=== PATIENT | male | born 1960 | race Caucasian/White ===

== ENCOUNTER → 2018-06-11 09:03 | Outpatient (CLI) | payer OTHER, SELFPAY ==
[2018-06-11 10:01] LABS: Erythrocyte Sedimentation Rate 17 MM/HR (0-15)
[2018-06-11 10:07] LABS: Blood Urea Nitrogen 15 mg/dL (9-20); C-Reactive Protein Quant 0.9 mg/dL (<1.0); Calcium 9.5 mg/dL (8.4-10.2); Carbon Dioxide 27 mmol/L (22-32); Chloride 102 mmol/L (98-107); Estimated Glomerular Filt Rate > 60.0 mL/min (>60); Glucose 121 mg/dL (70-100); HEMOLYSIS < 15 (0-50); Potassium 4.8 mmol/L (3.4-5.1); Sodium 140 mmol/L (137-145); Uric Acid 6.9 mg/dL (3.5-8.5)
== END ==
PROVIDERS: Visit Provider Registered Nurse
DX: M10.9 Gout, unspecified (principal)
CPT/HCPCS: 36415; 80048; 84550; 85651; 86140

== ENCOUNTER → 2018-07-04 08:32 | Outpatient (CLI) | payer OTHER, SELFPAY ==
[2018-07-04 09:29] LABS: Add Manual Diff / Slide Review NO; Basophils Absolute Auto 0 /uL (0-100); Basophils Percent Auto 0.8 % (0-2); Eosinophils Absolute Auto 200 /uL (0-450); Eosinophils Percent Auto 5.3 % (2-4); Hematocrit 43.8 % (41-53); Hemoglobin 14.8 g/dL (13.5-17.5); Lymphocytes Absolute Auto 1400 /uL (1100-4500); Lymphocytes Percent Auto 31.6 % (25-40); Mean Corpuscular HGB Conc 33.8 % (30-36); Mean Corpuscular Hemoglobin 32.1 PG (26-34); Mean Corpuscular Volume 95.1 fL (80-100); Monocytes Absolute Auto 600 /uL (0-900); Monocytes Percent Auto 13.6 % (3-14); Neutrophils Absolute Auto 2100 /uL (1500-7000); Neutrophils Percent Auto 48.7 % (50-75); Platelet Count 227 X10^3/uL (150-400); Red Cell Distribution Width 13.5 % (11.6-14.8); White Blood Cell Count 4.4 X10^3/uL (4.5-11.0)
[2018-07-04 10:10] LABS: Hemoglobin A1C% w Est Avg Glu 5.8 % (4.0-6.0)
[2018-07-04 10:11] LABS: Alanine Aminotransferase 65 IU/L (21-72); Albumin 4.6 g/dL (3.5-5.0); Albumin Globulin Ratio 1.5 (1.0-2.8); Alkaline Phosphatase 56 U/L (38-126); Aspartate Aminotransferase 41 IU/L (17-59); BUN Creatinine Ratio 17.3 (6-22); Bilirubin Total 0.4 mg/dL (0.2-1.3); Blood Urea Nitrogen 19 mg/dL (9-20); Calcium 9.6 mg/dL (8.4-10.2); Carbon Dioxide 27 mmol/L (22-32); Chloride 101 mmol/L (98-107); Cholesterol 190 mg/dL (140-199); Estimated Glomerular Filt Rate > 60.0 mL/min (>60); Globulin 3.1 g/dL (1.7-4.1); Glucose 99 mg/dL (70-100); HDL Cholesterol 32 mg/dL (40-60); HEMOLYSIS < 15 (0-50); LDL Cholesterol Calculated 136 mg/dL (<100); Potassium 4.4 mmol/L (3.4-5.1); Sodium 140 mmol/L (137-145); Total Protein 7.7 g/dL (6.3-8.2); Triglycerides 110 mg/dL (35-150)
[2018-07-04 10:38] LABS: TSH w/ Reflex to FT4 5.16 uIU/mL (0.47-4.68)
[2018-07-04 11:25] LABS: Free T4, Direct Thyroxine 1.02 ng/dL (0.78-2.19)
== END ==
PROVIDERS: Visit Provider Family Medicine
DX: N52.9 Male erectile dysfunction, unspecified (principal); Z13.220 Encounter for screening for lipoid disorders
CPT/HCPCS: 36415; 80053; 80061; 83036; 84403; 84439; 84443; 85025

== ENCOUNTER → 2018-08-29 10:58 | Outpatient (CLI) | payer OTHER, SELFPAY ==
--- NOTE | 2018-08-29 13:52 | DIET.PN ---
Met with pt and for initial consultation. Pt wants to lose wt. 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 has fibromyalgia, so he's wanting to prepare foods appropriate for her as well. Gained a lot of wt in last year r/t decrease in physical activity. Dx: Obesity Ht: 72 Wt: 265# BMI: 35 Usual Diet: 3 meals daily; tries to avoid snacks as they are usually poor choices. Diet includes lean meats - lot of poultry, some pork, some seafood w/beef only twice/year. Diet includes a lot of vegetables; has been trying to cut down on breads and beer. Likes craft beer - brown or scotch brittani. Exercise: Used to swim and walk daily. Had to stop r/t a neck issue. Has only recently started some walking. Assessment: Pt and appear to eat a fairly clean diet w/many whole foods; home prepared meals. Biggest obstacle to wt control appears to be lack of exercise, which he is working on once again. Intervention: Provided ed on anti-inflammatory diet, which will be good for both pt and his . Provided ed on healthy plate model for portion control/well balanced diet. Plan: Pt w/c for f/u when has schedule in order.
== END ==
PROVIDERS: Visit Provider Family Medicine
DX: E66.9 Obesity, unspecified (principal)
CPT/HCPCS: 97802

== ENCOUNTER 2018-09-03 20:44 | Emergency (ER) | payer OTHER, SELFPAY ==
[2018-09-03 20:48] VITALS: BP 181/116; PULSE 70; RESP 20; TEMP 37; O2SAT 96; BMI 35.9
[2018-09-03 21:20] LABS: Bacteria Urine None Seen; WBC Urine None Seen (0-5/HPF)
[2018-09-03 21:37] LABS: Appearance Urine UA OTHER; Color Urine UA BLOODY RED; pH Urine UA 6.5 (4.5-8.0)
[2018-09-03 21:38] LABS: Glucose Urine UA NEGATIVE (Negative); Protein Urine UA 3+ (Negative); Specific Gravity Urine UA 1.015 (1.000-1.035)
[2018-09-03 21:39] LABS: Leukocyte Esterase Urine UA NEGATIVE (NEGATIVE); Occult Blood Urine UA 4+ (Negative); RBC Urine >100/HPF (0-5/HPF)
[2018-09-03 21:40] LABS: Culture Indicated Urine Cult Not Indicated
[2018-09-03 22:09] VITALS: BP 142/94; PULSE 62; RESP 18; O2SAT 95
[2018-09-03 22:42] LABS: Bilirubin Urine UA Negative (NEGATIVE)
[2018-09-03 23:56] VITALS: BP 140/71; PULSE 64; O2SAT 95
--- NOTE | 2018-09-03 23:57 | ED_ITS ---
HPI - Male Genitourinary General Chief complaint: Urogenital-Male Stated complaint: BLOOD IN URINE Time Seen by Provider: 09/03/18 23:57 Source: patient Mode of arrival: ambulatory Limitations: no limitations History of Present Illness HPI Narrative: While at rest this evening the patient developed hematuria. He developed intense pain in the right lower quadrant of his abdomen radiating to the right side of his scrotum. He has no associated back pain. He has no abdominal pain. He has had no fever or chills. He denies dysuria. He has no history of kidney stones. Related Data Home Medications Medication Instructions Recorded Confirmed Resmed Airsense 10 Auto CPAP #1 ea 05/07/18 08/18/18 Previous Rx's Medication Instructions Recorded albuterol sulfate [Proventil HFA] 2 puff INH Q2H #8.5 gm 04/28/12 bupropion HCl 300 mg PO QDAY #90 tab 12/21/16 sildenafil 100 mg tablet 100 mg PO ONCE #20 tab 06/06/18 Allergies Allergy/AdvReac Type Severity Reaction Status Date / Time No Known Drug Allergies Allergy Verified 08/18/18 15:52 Review of Systems Review of Systems ROS Unobtainable: All systems reviewed & are unremarkable except as noted in HPI and below Constitutional Denies chills, Denies fever(s), Denies lethargy and Denies weakness Cardiovascular Denies chest pain, Denies irregular heart rhythm, Denies lightheadedness, Denies palpitations, Denies dyspnea, Denies dyspnea on exertion and Denies orthopnea Respiratory Denies cough, Denies dyspnea, Denies dyspnea on exertion and Denies wheezing Gastrointestinal Gastrointestinal: Reports abdominal pain, Denies change in bowel habits, Denies diarrhea, Denies nausea and Denies vomiting Genitourinary Reports hematuria, Denies flank pain, Denies urinary incontinence and Denies urinary urgency Musculoskeletal Denies back pain Neurologic Denies weakness Endocrine Denies palpitations Allergic/Immunologic Denies wheezing [facility] Medical History Chronic neck pain (Chronic) Depression (Chronic) Obstructive sleep apnea of adult (Chronic) Family History Father Lung cancer Throat cancer Mother CAD (coronary artery disease) CVA (cerebral vascular accident) Hypertension Social History (Updated 05/09/18 @ 11:40 by ANGELA Irizarry) marital status: details: ernie Suarez, lives in [place], works at the [employer] [address] household members: spouse lives independently: Yes caregiver/support person: No occupational status: employed Smoking Status: Never smoker second hand exposure: No alcohol intake: current substance use type: does not use Family History Father Lung cancer Throat cancer Mother CAD (coronary artery disease) CVA (cerebral vascular accident) Hypertension Social History marital status: details: ernie Suarez, lives in [place], works at the [employer] [address] household members: spouse lives independently: Yes caregiver/support person: No occupational status: employed Smoking Status: Never smoker second hand exposure: No alcohol intake: current substance use type: does not use Exam Initial Vital Signs Initial Vital Signs: Vital Signs Temperature 98.6 F 09/03/18 20:48 Pulse Rate 70 09/03/18 20:48 Respiratory Rate 20 09/03/18 20:48 Blood Pressure 181/116 H 09/03/18 20:48 Pulse Oximetry 96 09/03/18 20:48 Const General: cooperative and well developed Nutritional Appearance: well nourished Orientation: alert, awake and oriented x3 HENMT Head: normocephalic and atraumatic Ears: external ears normal and TM's normal bilaterally Nose: external nose normal Mouth: oral mucosae normal and moist mucous membranes Teeth and gingiva: dentition normal Throat: tonsils normal and uvula midline Chest Chest: normal inspection of the chest Resp Effort & Inspection: normal respiratory effort, able to speak in complete sentences, no respiratory distress and no use of accessory muscles Auscultation: clear to auscultation bilaterally, no rales, no rhonchi and no wheezes Cardio Rate: regular rate Rhythm: regular rhythm Heart Sounds: no click, no gallops, no murmurs and no rubs Pulses: normal peripheral pulses GI Inspection: non-distended Palpation: soft, no hepatosplenomegaly, No guarding, No pulsatile mass and No tender Auscultation: normal bowel sounds Penis: normal penis Meatus: meatus normal Scrotum: scrotum normal, not edematous and no masses Back/Spine/Pelvis Sacrum: no tenderness Skin General: no rashes or lesions noted and No petechiae Course Course Narrative: The patient is pain free prior to discharge. He presented with hematuria and RLQ tenderness. He is pain-free after IV fluids and Toradol. CT showed a punctate left renal stone, no other significant findings. Orders Ordered: ED Orders 09/03/18 20:50 Urinalysis and Microscopic Stat 09/04/18 00:11 CT abdomen pelvis wo con Stat 09/04/18 00:25 Basic Metabolic Panel Stat Complete Blood Count AUTO DIFF Stat Sodium Chloride (Normal Saline 0.9%) 1,000 mls @ 150 mls/hr IV CONT JOHN Discontinued Medications Ketorolac Tromethamine (Toradol) 30 mg IV NOW ONE Stop: 09/04/18 00:11 Last Admin: 09/04/18 00:27 Dose: 30 mg Vital Signs - 8 hr 09/03/18 20:48 09/03/18 22:09 09/03/18 23:56 Temperature 98.6 F Pulse Rate 70 62 64 Respiratory Rate 20 18 Blood Pressure 181/116 H Blood Pressure [Left Arm] 142/94 H 140/71 Pulse Oximetry 96 95 95 09/04/18 00:30 09/04/18 01:03 Temperature Pulse Rate 65 103 H Respiratory Rate 27 H Blood Pressure Blood Pressure [Left Arm] 142/92 H 111/66 Pulse Oximetry 93 100 MDM - Male Genitourinary Lab Data Result diagrams: 09/04/18 00:25 09/04/18 00:25 Lab Results 09/03/18 09/04/18 09/04/18 Range/Units 20:50 00:25 00:25 WBC 7.9 (4.5-11.0) X10^3/uL RBC 4.62 (4.5-5.9) X10^6/uL Hgb 14.9 (13.5-17.5) g/dL Hct 43.5 (41-53) % MCV 94.0 (80-100) fL MCH 32.3 (26-34) PG MCHC 34.3 (30-36) % RDW 13.6 (11.6-14.8) % Plt Count 216 (150-400) X10^3/uL Neut % (Auto) 58.4 (50-75) % Lymph % (Auto) 29.6 (25-40) % [place] % (Auto) 8.5 (3-14) % Eos % (Auto) 2.7 (2-4) % Baso % (Auto) 0.8 (0-2) % Neut # (Auto) 4600 (3306-0149) /uL Lymph # (Auto) 2300 (5499-6660) /uL [place] # (Auto) 700 (0-900) /uL Eos # (Auto) 200 (0-450) /uL Baso # (Auto) 100 (0-100) /uL Sodium 139 (137-145) mmol/L Potassium 4.0 (3.4-5.1) mmol/L Chloride 101 (98-107) mmol/L Carbon Dioxide 25 (22-32) mmol/L BUN 25 H (9-20) mg/dL Creatinine 1.20 (0.66-1.25) mg/dL Estimated GFR > 60.0 (>60) mL/min BUN/Creatinine Ratio 20.8 (6-22) Glucose 104 H (70-100) mg/dL Calcium 9.6 (8.4-10.2) mg/dL Urine Color Bloody red Urine Appearance Other Urine pH 6.5 (4.5-8.0) Ur Specific [place] 1.015 (1.000-1.035) Urine Protein 3+ H (Negative) Urine Glucose (UA) Negative (Negative) g/dL Urine Ketones Not Reportable Urine Occult Blood 4+ H (Negative) Urine Nitrate Not Reportable Urine Bilirubin Negative (NEGATIVE) Urine Urobilinogen Not Reportable Ur Leukocyte Esterase Negative (NEGATIVE) Urine RBC >100/hpf (0-5/HPF) Urine WBC None seen (0-5/HPF) Urine Bacteria None seen (None) Ur Culture Indicated? Cult not indicated Micro UA Comment * Imaging Data CT scan - abdomen: Radiologist's impression: Questionable punctate left intrarenal calculus, no hydronephrosis or obstructing calculus. No other significant findings. Discharge Plan Departure Patient Disposition: Home Clinical Impression: Hematuria Qualifiers: Hematuria type: gross Qualified Code(s): R31.0 - Gross hematuria Instructions: DI for Kidney Stones Activity Restrictions/Additional Instructions: Drink plenty of fluids, be sure you are staying well hydrated. Take Tylenol or Advil as needed for pain. Return here if you have recurrence of pain. Prescriptions: No Action albuterol sulfate [Proventil HFA] 90 MCG/PUFF HFA aerosol inhaler 2 puff INH Q2H Qty: 8.5 RF: 3 bupropion HCl 300 MG tablet extended release 24 hr 300 mg PO QDAY Qty: 90 RF: 3 sildenafil 100 mg tablet 100 mg PO ONCE Qty: 20 RF: 2 Resmed Airsense 10 Auto CPAP Qty: 1 RF: 0
--- NOTE | 2018-09-04 00:11 | DI.CT.S_ITS ---
PROCEDURE: CT ABDOMEN PELVIS WO CON INDICATIONS: RLQ pain. Hematuria. TECHNIQUE: Noncontrast 5 mm thick sections acquired from the diaphragms to the symphysis. 5 mm coronal and sagittal reformats were then performed. For radiation dose reduction, the following was used: automated exposure control, adjustment of mA and/or kV according to patient size. COMPARISON: [facility], , MRI L-SPINE W/WO CONTRAST, 04/06/2005, 8:13. FINDINGS: Image quality: Excellent. ABDOMEN: Lung bases: Lung bases are clear. Heart size is normal. Solid organs: Hepatic steatosis. Liver is normal in size. Gallbladder is normal. Pancreas is normal in contours. Spleen is normal in size. No adrenal nodules. Kidneys are normal in size, without hydronephrosis or nephrolithiasis. There is 5 cm simple-appearing cyst in the inferior pole of the left kidney. Small low density cortical nodule seen in the left kidney are also likely cysts. Possible tiny nonobstructive left renal calcification. Peritoneum and bowel: Appendix is not visualized. There is no inflammatory stranding in the right lower quadrant. Moderate amount of stool in colon. Unenhanced bowel loops demonstrate normal wall thickness and caliber. No free fluid or air. Nodes and vessels: No retroperitoneal or mesenteric adenopathy by size criteria. Aorta and inferior vena cava are normal in caliber. Miscellaneous: No ventral hernias. PELVIS: Genitourinary: Bladder wall thickness is normal. Miscellaneous: No inguinal hernias or adenopathy. Bones: No suspicious bony lesions. No vertebral body compression fractures. Mild degenerative changes in lumbar spine. IMPRESSION: 1. No CT findings to explain right lower quadrant abdominal pain. No right renal stone. Nonvisualization of appendix. No secondary signs to suggest acute appendicitis. 2. Hepatic steatosis. 3. Moderate amount of stool in colon. 4. Possible tiny nonobstructive left renal calcification and multiple left renal cysts. No significant discrepancy with the night shift supervisor radiology preliminary report. Dictated by: Lito Judd M.D. on 09/04/2018 at 8:17 Approved by: Lito Judd M.D. on 09/04/2018 at 8:23
[2018-09-04] MEDS: KETOROLAC 60 MG/2 ML VIAL 30 MG IV (00:27)
[2018-09-04 00:30] VITALS: BP 142/92; PULSE 65; O2SAT 93
[2018-09-04 00:32] LABS: Add Manual Diff / Slide Review NO; Basophils Absolute Auto 100 /uL (0-100); Basophils Percent Auto 0.8 % (0-2); Eosinophils Absolute Auto 200 /uL (0-450); Eosinophils Percent Auto 2.7 % (2-4); Hematocrit 43.5 % (41-53); Hemoglobin 14.9 g/dL (13.5-17.5); Lymphocytes Absolute Auto 2300 /uL (1100-4500); Lymphocytes Percent Auto 29.6 % (25-40); Mean Corpuscular HGB Conc 34.3 % (30-36); Mean Corpuscular Hemoglobin 32.3 PG (26-34); Monocytes Absolute Auto 700 /uL (0-900); Monocytes Percent Auto 8.5 % (3-14); Neutrophils Absolute Auto 4600 /uL (1500-7000); Neutrophils Percent Auto 58.4 % (50-75); Platelet Count 216 X10^3/uL (150-400); Red Blood Cell Count 4.62 X10^6/uL (4.5-5.9); Red Cell Distribution Width 13.6 % (11.6-14.8); White Blood Cell Count 7.9 X10^3/uL (4.5-11.0)
[2018-09-04 00:42] LABS: BUN Creatinine Ratio 20.8 (6-22); Blood Urea Nitrogen 25 mg/dL (9-20); Calcium 9.6 mg/dL (8.4-10.2); Carbon Dioxide 25 mmol/L (22-32); Chloride 101 mmol/L (98-107); Estimated Glomerular Filt Rate > 60.0 mL/min (>60); Glucose 104 mg/dL (70-100); HEMOLYSIS < 15 (0-50); Sodium 139 mmol/L (137-145)
[2018-09-04 01:03] VITALS: BP 111/66; PULSE 103; RESP 27; O2SAT 100
[2018-09-04 02:30] VITALS: BP 127/90; PULSE 99; RESP 20; O2SAT 100
[2018-09-04 03:06] VITALS: BP 131/86; PULSE 59; RESP 15; O2SAT 95
== END 2018-09-04 03:06 | disposition home or self-care (01) ==
PROVIDERS: Emergency Provider Emergency Medicine
DX: R31.0 Gross hematuria (principal); R10.31 Right lower quadrant pain
CPT/HCPCS: 36591; 74176; 80048; 81001; 85025; 96374; 99283; 99284; J1885

== ENCOUNTER → 2019-11-17 11:08 | Outpatient (CLI) | payer OTHER, SELFPAY ==
--- NOTE | 2019-11-17 11:17 | DI.RAD.S_ITS ---
PROCEDURE: XR KNEE RT 3V INDICATIONS: knee pain TECHNIQUE: 3 views of the knee were acquired. COMPARISON: [facility], , KNEE 3V RIGHT, 03/01/2009, 11:06. FINDINGS: Bones: No fractures or dislocations. No suspicious bony lesions. There is ACL repair. Mild to moderate degenerative joint disease. Soft tissues: Small joint effusion. No suspicious soft tissue calcifications. IMPRESSION: 1. No acute osseous abnormalities. 2. ACL repair. 3. Mild to moderate degenerative joint disease. 4. Small knee joint effusion. Dictated by: Lito Judd M.D. on 11/17/2019 at 15:51 Approved by: Lito Judd M.D. on 11/17/2019 at 15:52
== END ==
PROVIDERS: PCP Family Medicine; Referring Provider Family Medicine; Visit Provider Family Medicine
DX: M25.561 Pain in right knee (principal); M17.11 Unilateral primary osteoarthritis, right knee; M25.461 Effusion, right knee
CPT/HCPCS: 73562

== ENCOUNTER → 2019-12-05 13:48 | Outpatient (CLI) | payer OTHER, SELFPAY ==
[2019-12-06 20:46] LABS: COVID19 Sendout Not Detected (Not Detect)
== END ==
PROVIDERS: PCP Family Medicine; Visit Provider Physician Assistant
DX: Z11.59 Encounter for screening for other viral diseases (principal)
CPT/HCPCS: 87635

== ENCOUNTER 2019-12-08 11:55 | Day surgery (SDC) | payer OTHER, SELFPAY ==
--- NOTE | 2019-12-08 | PATH_ITS ---
[facility] Accession Number: [id number] . 01 Material submitted: . colon - SMALL FLAT POLYP AT 50CM . 01 Clinical history: . SDC . 02 Diagnosis: Colon, Small Flat Polyp at 50 cm, Biopsy: Colonic mucosa with no significant diagnostic abnormality. Please see comment. Negative for dysplasia and malignancy. MRV 12/11/2019 1345 Local . 02 Comment: Additional deeper levels were requested for examination; however, there is no remaining tissue in the block for further evaluation. Clinical correlation recommended. . 02 Electronically signed: . Zehra Mcnamara MD, Pathologist NPI- [id number] . 01 Gross description: . SMALL FLAT POLYP AT 50CM: Received in formalin is 1 fragment(s) of matos, soft tissue measuring 0.3 x 0.1 x 0.1 cm submitted entirely in 1 cassette(s) /QBJ 12/09/2019 0901 Local . 02 Pathologist provided ICD-10: K63.5 . 02 CPT . 749422 Performed at: 01 [facility] [address] [place] [address], [place], [place] [id number] MD Jeff Harper MD Phone: [phone] Performed at: 02 [facility] [address] [place], [place] [id number] MD Zehra Mcnamara MD Phone: [phone]
[2019-12-08 12:09] VITALS: BP 159/82; PULSE 63; RESP 18; TEMP 36.3; O2SAT 98; BMI 35.2
[2019-12-08] MEDS: SODIUM CHLORIDE 0.9% 1,000 ML 200 ML IV (12:45)
--- NOTE | 2019-12-08 12:50 | PM.HP.1 ---
History of Present Illness History of Present Illness Date Patient Seen: 12/08/19 Time Patient Seen: 12:50 Chief complaint: SDC Narrative: This is a 51-year-old man who had screening colonoscopy in 2013 were multiple polyps were removed. Since then he denies any melena, hematochezia, unexplained abdominal pain, or explain weight loss. He has had some hard stools and constipation. ROS: Positive for sleep apnea, depression. Thirteen system review is otherwise negative other than as mentioned below and in HPI. PE GENERAL: Well groomed and cooperative. Appears stated age. Answers questions promptly and appropriately. Vital signs noted. HENT: Normocephalic, atraumatic. Hearing intact. EYES: Conjunctiva pink, sclera white, no periorbital swelling. CARDIOVASCULAR: Regular rate. No pedal edema. RESPIRATORY: Non-tachypneic, breathing comfortably on room air. GASTROINTESTINAL: Abdomen soft and non-distended GENITALURINARY: No flank tenderness. MUSCULOSKELETAL: Equal tone and mass bilaterally. SKIN: Warm, dry, soft, appropriate color for ethnicity. No other lesions, rashes, or wounds. NEURO: Alert and Oriented X 3. No gross sensory deficits, or cognitive issues. PSYCH: Appropriate affect and mood. Patient History Medical History Chronic neck pain (Chronic) Depression (Chronic) Obstructive sleep apnea of adult (Chronic) Family & Social History Family History Father Lung cancer Throat cancer Mother CAD (coronary artery disease) CVA (cerebral vascular accident) Hypertension Social History: household members spouse lives independently Yes caregiver/support person No Tobacco & Substance use: Smoking Status Never smoker alcohol intake current alcohol intake frequency a few times a week Substance Use Type does not use Meds Home Medications and Allergies Home Medications Medication Instructions Recorded Confirmed Type albuterol sulfate [Proventil HFA] 2 puff INH Q2H #8.5 gm 04/28/12 12/08/19 Rx Resmed Airsense 10 Auto CPAP #1 ea 05/07/18 11/17/19 History bupropion HCl 300 mg 24 hr tablet, 300 mg PO QDAY #90 tab 10/27/18 12/08/19 Rx extended release sildenafil 100 mg tablet 100 mg PO ONCE #20 tab 11/17/19 12/08/19 Rx Allergies Allergy/AdvReac Type Severity Reaction Status Date / Time No Known Drug Allergies Allergy Verified 11/17/19 10:34 Exam Vital Signs (past 8 hours): - 12/08/19 12:09 Temperature 97.4 F L Pulse Rate 63 Respiratory Rate 18 Blood Pressure 159/82 H Pulse Oximetry 98 Oxygen Delivery Method Room Air Assessment & Plan Assessment and plan (1) Personal history of colonic polyps: Status: Acute Assessment & Plan narrative: Risks and benefits of screening colonoscopy and possible polypectomy were discussed with the patient including risk of bleeding, perforation, need for additional procedures, risks of anesthesia. The patient desires to proceed with the colonoscopy procedure. COVID-19 COVID-19 status: Negative Result date/Date tested (Pos, Neg/Pending): 12/05/19 Time Spent With Patient Time with patient: 15-24 minutes Quality VTE Deep Vein Thrombosis/Pulmonary Embolism Present on Admission: No
--- NOTE | 2019-12-08 12:56 | P.OP.ENDO_ITS ---
Operative Date/Time/Diagnoses Date of procedure: 12/08/19 Time of procedure: 12:56 Pre-op diagnosis: Personal history of colon polyps Post-op diagnosis: other (Single small polyp at 50 cm removed with cold forceps) Procedure & Clinicians Study performed: Colonoscopy, polypectomy with cold forceps Procedural sedation performed by endoscopist Indications: This is a 59-year-old man with a personal history of colon polyps Surgeon: Hyacinth Maldonado Procedure Notes SCOAP/Timeout: Perform Procedure in detail: The patient was brought to the room and placed in left lateral decubitus position with all bony prominences padded. A time-out was performed and then the patient was given procedural sedation starting with 4 mg of Versed and 100 mcg of fentanyl. Total of 5 mg of Versed and 150 micro g of fentanyl were given for the entire procedure. Vitals were monitored throughout the procedure and remained stable. Once adequately sedated, the procedure was begun. A rectal exam was performed revealing no abnormalities. The colonoscope was then introduced to the rectum and advanced to the cecum in the usual fashion. The cecum was identified by the appendiceal orifice, the mucosal tri- fold, and the ileocecal valve. The scope was then retracted while rotating side to side and examining each mucosal fold. A small polyp was found at 50 cm and was removed with cold forceps. At the conclusion of the procedure retroflexion was performed and small grade 1-2 internal hemorrhoids without stigmata of bleeding were seen. The scope was then withdrawn from the rectum the procedure was concluded. The patient tolerated the procedure well and was transferred to the PACU in stable condition. Scope withdrawal time: 11 Sedation minutes: 25 Findings: polyp Specimen(s): other (Small polyp from 50 cm) Complications: none Impression: Single small benign-appearing polyp Post-procedure Recommendations: Colonscopy in 10 years (As long as pathology is benign) Follow up: as needed Disposition: PACU
[2019-12-08] MEDS: MIDAZOLAM 5 MG/5 ML VIAL IV (13:27)
[2019-12-08] MEDS: fentaNYL 250 MCG/5 ML INJ IV (13:27)
[2019-12-08 13:30] VITALS: BP 146/88; PULSE 60; RESP 17; TEMP 37.2; O2SAT 93
[2019-12-08 13:35] VITALS: BP 131/90; PULSE 64; RESP 16; O2SAT 95
[2019-12-08 13:45] VITALS: BP 117/81; PULSE 61; RESP 18; TEMP 36.3; O2SAT 97
== END 2019-12-08 13:54 | disposition home or self-care (01) ==
PROVIDERS: PCP Family Medicine; Referring Provider Family Medicine; Visit Provider Surgery
PROC: 0DJD8ZZ Inspection of Lower Intestinal Tract, Via Natural or Artificial Opening Endoscopic (ICD-10-PCS; CPT 45378; principal; 2019-12-08 13:00)
DX: Z12.11 Encounter for screening for malignant neoplasm of colon (principal); Z86.010 Personal history of colon polyps; G47.33 Obstructive sleep apnea (adult) (pediatric); K64.0 First degree hemorrhoids; K63.5 Polyp of colon
CPT/HCPCS: 45380; 99152; J2250; J3010

== ENCOUNTER → 2019-12-09 10:00 | Outpatient (CLI) | payer OTHER, SELFPAY ==
[2019-12-09 11:23] LABS: Add Manual Diff / Slide Review NO; Basophils Absolute Auto 100 /uL (0-100); Basophils Percent Auto 0.9 % (0-2); Eosinophils Absolute Auto 100 /uL (0-450); Eosinophils Percent Auto 2.2 % (2-4); Hematocrit 42.7 % (41-53); Hemoglobin 14.4 g/dL (13.5-17.5); Lymphocytes Absolute Auto 1700 /uL (1100-4500); Lymphocytes Percent Auto 27.9 % (25-40); Mean Corpuscular HGB Conc 33.8 % (30-36); Mean Corpuscular Volume 94.8 fL (80-100); Monocytes Absolute Auto 500 /uL (0-900); Monocytes Percent Auto 8.5 % (3-14); Neutrophils Absolute Auto 3700 /uL (1500-7000); Neutrophils Percent Auto 60.5 % (50-75); Platelet Count 225 X10^3/uL (150-400); Red Blood Cell Count 4.51 X10^6/uL (4.5-5.9); White Blood Cell Count 6.1 X10^3/uL (4.5-11.0)
[2019-12-09 11:24] LABS: Alanine Aminotransferase 31 IU/L (<50); Albumin 4.6 g/dL (3.5-5.0); Albumin Globulin Ratio 1.3 (1.0-2.8); Alkaline Phosphatase 64 U/L (38-126); Aspartate Aminotransferase 31 IU/L (17-59); BUN Creatinine Ratio 11.9 (6-22); Bilirubin Total 0.8 mg/dL (0.2-1.3); Blood Urea Nitrogen 15 mg/dL (9-20); Calcium 9.7 mg/dL (8.4-10.2); Carbon Dioxide 26 mmol/L (22-32); Chloride 105 mmol/L (98-107); Cholesterol 209 mg/dL (140-199); Estimated Glomerular Filt Rate 58.8 mL/min (>60); Globulin 3.5 g/dL (1.7-4.1); Glucose 106 mg/dL (70-100); HDL Cholesterol 35 mg/dL (40-60); HEMOLYSIS < 15 (0-50); LDL Cholesterol Calculated 136 mg/dL (<100); Potassium 4.8 mmol/L (3.4-5.1); Sodium 141 mmol/L (137-145); Total Protein 8.1 g/dL (6.3-8.2); Triglycerides 188 mg/dL (35-150)
[2019-12-09 12:24] LABS: TSH w/ Reflex to FT4 7.68 uIU/mL (0.47-4.68)
[2019-12-09 12:50] LABS: Free T4, Direct Thyroxine 0.96 ng/dL (0.78-2.19)
[2019-12-14 11:52] LABS: Hemoglobin A1C% w Est Avg Glu 6.1 % (4.0-6.0)
[2019-12-14 12:02] LABS: Free T3, Triiodothyronine Free 3.88 pg/mL (2.77-5.27)
== END ==
PROVIDERS: PCP Family Medicine; Referring Provider Family Medicine; Visit Provider Family Medicine
DX: E78.5 Hyperlipidemia, unspecified (principal)
CPT/HCPCS: 36415; 80053; 80061; 83036; 84439; 84443; 84481; 85025

== ENCOUNTER → 2020-02-22 15:30 | Outpatient (CLI) | payer OTHER, SELFPAY ==
--- NOTE | 2020-02-22 15:31 | DI.RAD.S_ITS ---
PROCEDURE: XR FOOT LT MIN 3V INDICATIONS: left foot pain, stepped on nail TECHNIQUE: 3 views of the foot were acquired. COMPARISON: None. FINDINGS: Bones: No fractures or dislocations. No suspicious bony lesions. . Mild osteoarthritis is noted at the 1st MTP joint. Soft tissues: No tibiotalar joint effusion. Achilles tendon appears normal. IMPRESSION: No fracture or foreign body seen. Dictated by: Sandor Arnold M.D. on 02/22/2020 at 16:32 Approved by: Sandor Arnold M.D. on 02/22/2020 at 16:32
== END ==
PROVIDERS: PCP Family Medicine; Referring Provider Family Medicine; Visit Provider Family Medicine
DX: S91.332A Puncture wound without foreign body, left foot, initial encounter (principal); W45.0XXA Nail entering through skin, initial encounter
CPT/HCPCS: 73630

== ENCOUNTER → 2020-05-08 10:49 | Outpatient (CLI) | payer OTHER, SELFPAY | PROVIDERS: PCP Family Medicine; Visit Provider Physician Assistant | DX: N34.3 Urethral syndrome, unspecified (principal) | CPT/HCPCS: 87086 ==

== ENCOUNTER → 2020-05-24 10:16 | Outpatient (CLI) | payer OTHER, SELFPAY ==
[2020-05-24 11:46] LABS: Hemoglobin A1C% w Est Avg Glu 6.1 % (4.0-6.0)
[2020-05-24 11:55] LABS: Cholesterol 218 mg/dL (140-199); HDL Cholesterol 34 mg/dL (40-60); LDL Cholesterol Calculated 152 mg/dL (<100); Triglycerides 158 mg/dL (35-150)
[2020-05-24 12:22] LABS: Free T4, Direct Thyroxine 0.98 ng/dL (0.78-2.19)
[2020-05-24 12:36] LABS: Thyroid Stimulating Hormone 3.89 uIU/mL (0.47-4.68)
== END ==
PROVIDERS: PCP Family Medicine; Referring Provider Family Medicine; Visit Provider Family Medicine
DX: E03.9 Hypothyroidism, unspecified (principal); R73.09 Other abnormal glucose; R79.89 Other specified abnormal findings of blood chemistry; E78.5 Hyperlipidemia, unspecified
CPT/HCPCS: 36415; 80061; 83036; 84439; 84443; 84481

== ENCOUNTER → 2020-06-22 17:58 | Outpatient (CLI) | payer OTHER, SELFPAY ==
--- NOTE | 2020-06-22 18:00 | DI.MRI.S_ITS ---
PROCEDURE: MR LUMBAR SPINE WO CON INDICATIONS: low back pain with radiculopathy TECHNIQUE: Noncontrast sagittal T1 spin echo and T2 fast echo, sagittal STIR, axial T1 and T2 fast spin echo through the lumbar spine. In cases with scoliosis, additional coronal T2 fast spin echo may be performed. COMPARISON: [facility], , MRI L-SPINE W/WO CONTRAST, 04/06/2005, 8:13. FINDINGS: Image quality: Excellent. Alignment and Curvature: There is minimal retrolisthesis at L2-L3, L4-L5, and L5-S1. Bone Marrow: Marrow is of normal overall signal. No acute vertebral body compression fractures. There are mild reactive endplate fatty changes at L5-S1. Spinal Cord: Conus medullaris terminates at the L1 level. Visualized cord demonstrates normal signal and size. Paraspinous Soft Tissues: No paravertebral masses. There is a partially visualized exophytic left renal cyst. T12-L1: Normal appearance. L1-L2: Normal appearance. L2-L3: Grossly preserved disc signal and height with a small posterior disc protrusion eccentric to the right. There is mild facet arthropathy and ligamentum flavum hypertrophy. These contribute to mild spinal canal narrowing with minimal right neural foraminal narrowing. Findings are new compared to the prior study. L3-L4: Preserved disc signal and disc height with a small broad-based disc bulge. There is mild to moderate facet arthropathy and ligamentum flavum hypertrophy. Findings contribute to eyim-sp-foblcdci spinal canal narrowing with mild bilateral neural foraminal narrowing. There is progression compared to the prior study. L4-L5: Disc desiccation with mild loss of disc height and a broad-based disc bulge. There is mild to moderate facet arthropathy and ligamentum flavum hypertrophy. These contribute to moderate spinal canal narrowing with mild to moderate bilateral neural foraminal narrowing. Findings demonstrate mild progression compared to the prior study. L5-S1: Eyfx-to-cfalyaua loss of disc height with disc desiccation and a small posterior disc osteophyte complex. Postsurgical changes are demonstrated status post left hemilaminectomy. There is mild facet arthropathy. No spinal canal narrowing. There is mild to moderate bilateral neural foraminal narrowing. There is increased loss of disc height compared to the prior study but mildly decreased disc protrusion. IMPRESSION: 1. Overall progression of degenerative changes in the lumbar spine compared to the prior study. 2. Small disc protrusion eccentric to the right at L2-L3 with associated mild spinal canal narrowing. 3. Disc bulges with facet arthropathy and ligamentum flavum hypertrophy contributing to moderate spinal canal narrowing at L4-5 and mild to moderate narrowing at L3-L4. Associated mild to moderate bilateral neural foraminal narrowing demonstrated at L4-5 as well as mild narrowing bilaterally at L3-L4. Dictated by: Jeff Lema M.D. on 06/23/2020 at 8:05 Approved by: Jeff Lema M.D. on 06/23/2020 at 8:34
== END ==
PROVIDERS: PCP Family Medicine; Referring Provider Family Medicine; Visit Provider Family Medicine
DX: M47.26 Other spondylosis with radiculopathy, lumbar region (principal); M47.27 Other spondylosis with radiculopathy, lumbosacral region; M51.16 Intervertebral disc disorders with radiculopathy, lumbar region; M48.061 Spinal stenosis, lumbar region without neurogenic claudication; M48.07 Spinal stenosis, lumbosacral region
CPT/HCPCS: 72148

== ENCOUNTER → 2021-02-20 12:32 | Outpatient (CLI) | payer OTHER, SELFPAY ==
--- NOTE | 2021-02-20 12:33 | DI.MRI.S_ITS ---
PROCEDURE: MR CERVICAL SPINE WO CON INDICATIONS: back pain with radiculopathy TECHNIQUE: Noncontrast sagittal T1 spin echo and T2 fast spin echo, sagittal STIR, foraminal oblique sagittal T2 fast spin echo, and axial gradient echo or T2 fast spin echo through the cervical spine. COMPARISON: [facility], CR, CERVICAL SPINE 2 OR 3 VIEWS, 01/30/2016, 14:28. [facility], MR, MR THORACIC SPINE WO CON, 02/20/2021, 13:14. [facility], MR, C-SPINE WITHOUT CONTRAST, 07/19/2016, 17:22. FINDINGS: Image quality: This examination is limited by involuntary motion artifact. Alignment and Curvature: There is minimal anterolisthesis seen at C2-C3 and C3-C4. Minimal anterolisthesis is also seen at the C7-T1 level. There is overall straightening of the normal cervical lordosis. Bone Marrow: Marrow demonstrates normal overall signal. Spinal Cord: Visualized spinal cord has normal size and signal. No cerebellar tonsillar herniation. Paraspinous Soft Tissues: No paravertebral masses. Prevertebral soft tissues are normal in thickness. C2-C3: Mild loss of disc height is seen. Loss of disc signal is seen. Mild disc osteophyte complex is seen, with a mild central disc osteophyte protrusion. There is moderate bilateral facet hypertrophy seen, right worse than left. Moderate bilateral neural foraminal narrowing is seen. Moderate central canal narrowing is seen. These imaging findings have progressed compared to the prior study. C3-C4: Mild loss of disc height is seen. Loss of disc signal is seen. A mild degree of generalized disc osteophyte complex is seen. Mild bilateral neural foraminal narrowing is seen. There is moderate left-sided and no significant right-sided neural foraminal narrowing seen. Mild central canal narrowing is seen. C4-C5: There is moderate to severe loss of disc height and disc signal seen. Reactive marrow endplate changes are seen, which demonstrate mixed T1 weighted and T2-weighted signal, and are attributed to a combination of edema and fatty metaplasia (Modic type I and Modic type II changes). Moderate disc osteophyte complex is seen, with a central/left disc osteophyte protrusion. Mild to moderate facet hypertrophy is seen. There is moderate to severe bilateral neural foraminal narrowing seen, left worse than right. At least moderate central canal narrowing is seen, with associated mass effect upon the ventral spinal cord. These degenerative changes are progressed compared to 2017. C5-C6: Moderate loss of disc height is seen. Loss of disc signal is seen. Moderate disc osteophyte complex is seen, which is eccentric to the right. Mac vertebral mild to moderate facet hypertrophy is seen at this level. There is at least moderate bilateral neural foraminal narrowing seen. Mac VIII central There is associated mass effect upon the ventral spinal cord. When comparison is made with the prior images, these findings are similar. C6-C7: Moderate loss of disc height is seen. Loss of disc signal is seen. Moderate disc osteophyte complex is seen, which is slightly eccentric to the right. Mild facet joint hypertrophy is seen. Moderate to severe bilateral neural foraminal narrowing can be seen. Moderate central canal narrowing is seen. There is associated mass effect upon the ventral spinal cord. These imaging findings have progressed compared to the prior study. C7-T1: Moderate loss of disc height is seen. Loss of disc signal is seen. Moderate generalized disc osteophyte complex is seen. Moderate facet joint hypertrophy is seen. There is moderate to severe bilateral neural foraminal narrowing seen, left worse than right. Moderate central canal narrowing is seen. There is associated mass effect upon the ventral spinal cord. These imaging findings have progressed compared to the prior study. IMPRESSION: Multiple levels of cervical spine degenerative change are seen, which have progressed compared to 2017. Dictated by: Gerald Barrow M.D. on 02/20/2021 at 12:54 Approved by: Gerald Barrow M.D. on 02/20/2021 at 13:00
--- NOTE | 2021-02-20 12:33 | DI.MRI.S_ITS ---
PROCEDURE: MR THORACIC SPINE WO CON INDICATIONS: back pain with radiculopathy TECHNIQUE: Noncontrast sagittal T1 spine echo and T2 fast spin echo, sagittal STIR, axial T1 and T2 fast spin echo through the thoracic spine. COMPARISON: [facility], MR, MR CERVICAL SPINE WO CON, 02/20/2021, 12:54. [facility], MR, MR LUMBAR SPINE WO CON, 06/22/2020, 18:18. FINDINGS: Image quality: This examination is limited by involuntary motion artifact. Alignment and Curvature: There is normal bony alignment. Bone Marrow: Marrow is of normal overall signal. A focal the hemangioma can be seen involving the T8 vertebral body, with coarse increased T1 weighted and T2 weighted signal, without increased STIR signal. No acute vertebral body compression fractures. Spinal Cord: Visualized spinal cord is normal in size and signal. Paraspinous Soft Tissues: No paravertebral masses. Miscellaneous: Lower cervical spine degenerative changes can be seen. At T7-T8, there is moderate bilateral neural foraminal narrowing seen. No significant central canal narrowing is seen. At the T8-T9 level, there is a mild central disc protrusion, as on series 8, image 12 and on series 4 image 8, with mild central canal narrowing and mild mass effect upon the ventral spinal cord. Mild neural foraminal narrowing can be seen at this level. Milder degenerative changes are seen elsewhere. IMPRESSION: Mild focal degenerative change can be seen at T8-T9. Lower cervical spine degenerative changes are seen. T8 vertebral body hemangioma incidentally noted. Dictated by: Gerald Barrow M.D. on 02/20/2021 at 13:00 Approved by: Gerald Barrow M.D. on 02/20/2021 at 13:03
== END ==
PROVIDERS: PCP Family Medicine; Referring Provider Family Medicine; Visit Provider Family Medicine
DX: M47.22 Other spondylosis with radiculopathy, cervical region (principal); M54.9 Dorsalgia, unspecified
CPT/HCPCS: 72141; 72146

== ENCOUNTER → 2021-04-09 09:41 | Outpatient (CLI) | payer OTHER, SELFPAY ==
[2021-04-09 12:00] LABS: COVID19 -Nasal RAPID Negative (Negative)
== END ==
PROVIDERS: PCP Family Medicine; Visit Provider Physician Assistant
DX: Z20.822 Contact with and (suspected) exposure to COVID-19 (principal)
CPT/HCPCS: 87635

== ENCOUNTER → 2021-04-24 09:41 | Outpatient (CLI) | payer OTHER, SELFPAY | PROVIDERS: PCP Family Medicine; Visit Provider Physician Assistant | DX: R31.9 Hematuria, unspecified (principal) | CPT/HCPCS: 87086 ==

== ENCOUNTER → 2021-04-24 10:26 | Outpatient (CLI) | payer OTHER, SELFPAY ==
--- NOTE | 2021-04-24 10:29 | DI.RAD.S_ITS ---
PROCEDURE: XR KUB INDICATIONS: R flank pain, hematuria, hx of possible stones TECHNIQUE: One view of the abdomen acquired. COMPARISON: [facility], CT, CT ABDOMEN PELVIS WO CON, 09/04/2018, 0:36. FINDINGS: Surgical changes and devices: None. Bowel: Bowel gas pattern is normal. Moderate fecal debris. Soft tissues: No suspicious abdominal calcifications. Large calcified pelvic phleboliths, as before. Visualized solid organ contours appear normal in size. Bones: No suspicious bony lesions. IMPRESSION: No obvious renal stones. Comment: CT KUB may potentially be helpful. Dictated by: Bossman Mcnulty M.D. on 04/24/2021 at 11:29 Approved by: Bossman Mcnulty M.D. on 04/24/2021 at 11:46
== END ==
PROVIDERS: PCP Family Medicine; Referring Provider Physician Assistant; Visit Provider Physician Assistant
DX: R31.29 Other microscopic hematuria (principal)
CPT/HCPCS: 74018; 87086

== ENCOUNTER → 2021-05-03 13:10 | Outpatient (CLI) | payer OTHER, SELFPAY ==
[2021-05-03 15:26] LABS: COVID19 -Nasal RAPID POSITIVE (Negative)
== END ==
PROVIDERS: PCP Family Medicine; Referring Provider Nurse Practitioner Family; Visit Provider Nurse Practitioner Family
DX: U07.1 COVID-19 (principal); Z20.822 Contact with and (suspected) exposure to COVID-19; R50.9 Fever, unspecified
CPT/HCPCS: 87635

== ENCOUNTER → 2021-05-17 14:59 | Outpatient (CLI) | payer OTHER, SELFPAY | PROVIDERS: PCP Family Medicine; Visit Provider Family Medicine | DX: L03.90 Cellulitis, unspecified (principal) | CPT/HCPCS: 87070; 87075; 87077; 87147; 87185; 87186; 87205 ==

== ENCOUNTER → 2021-06-07 07:30 | Outpatient (CLI) | payer OTHER, SELFPAY ==
[2021-06-07 09:47] LABS: Cholesterol 260 mg/dL (140-199); HDL Cholesterol 39 mg/dL (40-60); LDL Cholesterol Calculated 167 mg/dL (<100); Triglycerides 268 mg/dL (35-150)
== END ==
PROVIDERS: PCP Family Medicine; Referring Provider Family Medicine; Visit Provider Family Medicine
DX: E78.5 Hyperlipidemia, unspecified (principal)
CPT/HCPCS: 36415; 80061

== ENCOUNTER → 2021-09-04 09:15 | Outpatient (CLI) | payer OTHER, SELFPAY ==
[2021-09-04 10:09] LABS: Hemoglobin A1C% w Est Avg Glu 6.2 % (4.0-6.0)
[2021-09-04 10:12] LABS: Alanine Aminotransferase 59 IU/L (<50); Albumin 4.9 g/dL (3.5-5.0); Albumin Globulin Ratio 1.4 (1.0-2.8); Alkaline Phosphatase 64 U/L (38-126); Aspartate Aminotransferase 42 IU/L (17-59); BUN Creatinine Ratio 17.9 (6-22); Bilirubin Total 0.8 mg/dL (0.2-1.3); Blood Urea Nitrogen 20 mg/dL (9-20); Calcium 9.4 mg/dL (8.4-10.2); Carbon Dioxide 27 mmol/L (22-32); Chloride 103 mmol/L (98-107); Cholesterol 259 mg/dL (140-199); Estimated Glomerular Filt Rate > 60 mL/min (>60); Globulin 3.4 g/dL (1.7-4.1); Glucose 124 mg/dL (80-110); HDL Cholesterol 42 mg/dL (40-60); HEMOLYSIS < 15 (0-50); LDL Cholesterol Calculated 166 mg/dL (<100); Potassium 4.6 mmol/L (3.4-5.1); Sodium 138 mmol/L (137-145); Total Protein 8.3 g/dL (6.3-8.2); Triglycerides 254 mg/dL (35-150)
[2021-09-04 11:15] LABS: Creatinine Urine Random 72.3 mg/dL
[2021-09-04 11:19] LABS: Microalbumi Creatinin Ratio Ur 12.4 ug/mg CR (<30); Microalbumin Urine Random 0.9 mg/dL (0-1.6)
== END ==
PROVIDERS: PCP Family Medicine; Referring Provider Family Medicine; Visit Provider Family Medicine
DX: R73.03 Prediabetes (principal)
CPT/HCPCS: 36415; 80053; 80061; 82043; 82570; 83036

== ENCOUNTER → 2022-11-19 09:24 | Outpatient (CLI) | payer OTHER, SELFPAY ==
--- NOTE | 2022-11-19 09:25 | DI.RAD.S_ITS ---
PROCEDURE: XR TOE LT MIN 2V INDICATIONS: Left great toe pain TECHNIQUE: AP view of the foot and two views of the great toe acquired. COMPARISON: None. FINDINGS: Bones: No fractures or dislocations. No suspicious bony lesions. Moderate degenerative changes of the 1st metatarsophalangeal joint. Scattered degenerative changes at the interphalangeal joints of the toes. Soft tissues: No suspicious soft tissue densities. 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 Approved by: Rich Sykes M.D. on 11/19/2022 at 14:08
== END ==
PROVIDERS: PCP Family Medicine; Referring Provider Nurse Practitioner Family; Visit Provider Nurse Practitioner Family
DX: M19.072 Primary osteoarthritis, left ankle and foot (principal); M25.572 Pain in left ankle and joints of left foot
CPT/HCPCS: 73660

== ENCOUNTER 2022-11-25 07:17 | Emergency (ER) | payer OTHER, SELFPAY ==
[2022-11-25 07:21] VITALS: BP 171/94; PULSE 88; RESP 18; TEMP 36.6; O2SAT 97; BMI 36.6
--- NOTE | 2022-11-25 08:35 | ED.LOWEXIN ---
HPI - Extremity Injury (Lower) General Chief Complaint: Extremity Injury, Lower Stated Complaint: pain behind lt big toe Time Seen by Provider: 11/25/22 07:43 Source: patient Mode of arrival: Ambulatory History of Present Illness HPI Narrative: Patient is a 62-year-old male. He has a history of gout. He states that he has always had gout in his left great toe. A little over 1 month ago he started have pain in his left great toe. He thought that it was gout. He started to take his home colchicine. He thought that things improved. Then came back again. He went to the walk-in clinic. Has been taking Naprosyn. Had an x-ray. No fracture but does show arthritis. He is here today because of continued symptoms despite his use of colchicine and naproxen. There has been no new trauma. Related Data Home Medications Medication Instructions Recorded Confirmed Resmed Airsense 10 Auto CPAP #1 ea 05/07/18 09/24/22 Previous Rx's Medication Instructions Recorded fluticasone propionate 50 1 spray intranasal DAILY #15.8 mL 12/14/19 mcg/actuation nasal spray,suspension (Flonase Allergy Relief) nystatin 100,000 unit/gram topical 1 applictn topical TID #60 grams 02/08/20 powder ketoconazole 2 % topical gel 1 applic topical DAILY #45 grams 08/01/20 nitroglycerin 0.4 % (w/w) rectal 1 inch OK BID #30 grams 08/01/20 ointment colchicine 0.6 mg tablet See Rx Instructions PO BID #30 tabs 10/11/20 ondansetron 4 mg disintegrating 4 mg PO Q8H PRN nausea and 05/17/21 tablet vomiting #14 tabs albuterol sulfate 90 mcg/actuation 2 puff inhalation Q4-6H PRN 05/29/21 aerosol inhaler (Proventil HFA) shortness of breath or wheezing #25.5 grams clobetasol 0.05 % topical ointment 1 applic topical BID #60 grams 12/28/21 bupropion HCl 300 mg 24 hr tablet, See Rx Instructions .Route 04/13/22 extended release .COMPLEX #10 tabs atorvastatin 10 mg tablet 10 mg PO QPM #90 tabs 08/27/22 sildenafil 100 mg tablet 100 mg PO ONCE #5 tabs 06/19/23 hydrocodone 5 mg-acetaminophen 325 1 tab PO Q4-6H PRN pain #15 tabs 11/25/22 mg tablet prednisone 20 mg tablet 20 mg PO DAILY #14 tabs 11/25/22 Allergies Allergy/AdvReac Type Severity Reaction Status Date / Time No Known Drug Allergies Allergy Verified 11/19/22 08:59 Review of Systems Musculoskeletal Musculoskeletal: Reports system reviewed and no additional complaints, except as documented Integumentary/Breasts Skin/Breast: Reports system reviewed and no additional complaints, except as documented Neurologic Neurologic: Reports system reviewed and no additional complaints, except as documented Patient History Medical History Chronic neck pain Depression Hematuria Obstructive sleep apnea of adult Pre-diabetes Surgical History History of back surgery Family History Father Lung cancer Throat cancer Mother CAD (coronary artery disease) CVA (cerebral vascular accident) Hypertension Social History marital status: details: enrie Suarez, lives in [place], works at the [employer] household members: spouse lives independently: Yes caregiver/support person: No occupational status: employed Smoking Status: Never smoker second hand exposure: No alcohol intake: current substance use type: does not use Smoking Status: Never smoker alcohol intake frequency: a few times a week Alcohol type: wine Substance Use Type: does not use Exam Initial Vital Signs Initial Vital Signs: Vital Signs Temperature 97.9 F 11/25/22 07:21 Pulse Rate 88 11/25/22 07:21 Respiratory Rate 18 11/25/22 07:21 Blood Pressure 171/94 H 11/25/22 07:21 Pulse Oximetry 97 11/25/22 07:21 Oxygen Delivery Method Room Air 11/25/22 07:21 Cardio Pulses: dorsalis pedis present on the left Skin Other: Very mild redness over the MTP joint of the left great toe there are no breaks in the skin. No abscesses. Neuro Sensory Exam: no sensory deficits noted Extrem Other: Patient has pain him would appears to be swelling over the MTP joint of the left great toe. Course Vital Signs Vital signs: Vital Signs - 8 hr 11/25/22 07:21 Temperature 97.9 F Pulse Rate 88 Respiratory Rate 18 Blood Pressure 171/94 H Pulse Oximetry 97 Oxygen Delivery Method Room Air MDM - Extremity Injury (Lower) MDM Narrative Medical decision making narrative: His history and physical today is most consistent with gout. He has a history of gout. He states this feels like gout. It is in the location where he always has gout. His exam is consistent with gout. I have low suspicion for infection/abscess. No breaks in the skin. He is had an x-ray which shows arthritis. There is no indication to repeat that today. He has colchicine at home. We will put him on a course of steroids and also give a prescription for pain medication. He was given return precautions. He expressed understanding and agreement. Discharge Plan Departure Patient Disposition: Home Clinical Impression: Gout Instructions: DI for Gout Activity Restrictions/Additional Instructions: I do recommend that you continue with the colchicine. You can take the pain medication as needed. I also recommend that you take the prednisone like we discussed. You can take 1 tablet today for up to 7 days. If you take it less than 7 days he do not need to do any tapering. If you take it longer than 7 days then it will be 1 tablet a day for 7 days and then 1/2 tablet a day for 7 days. Prescriptions: New prednisone 20 mg tablet 20 mg PO DAILY Qty: 14 0RF hydrocodone-acetaminophen 5-325 mg tablet 1 tab PO Q4-6H PRN (Reason: pain) Qty: 15 0RF No Action fluticasone propionate [Flonase Allergy Relief] 50 mcg/actuation spray,suspension 1 spray NASAL DAILY Qty: 15.8 2RF Rx Instructions: administer into each nostril nitroglycerin 0.4 % (w/w) ointment 1 inch OK BID Qty: 30 2RF ketoconazole 2 % gel 1 applic topical DAILY Qty: 45 2RF ondansetron 4 mg tablet,disintegrating 4 mg PO Q8H PRN (Reason: nausea and vomiting) Qty: 14 0RF nystatin 100,000 unit/gram powder 1 applictn TOP TID Qty: 60 1RF colchicine 0.6 mg tablet See Rx Instructions PO BID Qty: 30 1RF Rx Instructions: Take one tab three times daily for today only then twice daily until gout flare up has resolved. albuterol sulfate [Proventil HFA] 90 mcg/actuation HFA aerosol inhaler 2 puff inhalation Q4-6H PRN (Reason: shortness of breath or wheezing) Qty: 25.5 3RF clobetasol 0.05 % ointment 1 applic TOP BID Qty: 60 3RF bupropion HCl 300 mg tablet extended release 24 hr See Rx Instructions .ROUTE .COMPLEX Qty: 10 0RF Dose Instruction: TAKE 1 TABLET DAILY Rx Instructions: TAKE 1 TABLET DAILY atorvastatin 10 mg tablet 10 mg PO QPM Qty: 90 3RF sildenafil 100 mg tablet 100 mg PO ONCE Qty: 5 2RF Rx Instructions: administer 30 minutes to 4 hours before activity (DME) Resmed Airsense 10 Auto CPAP Qty: 1 Dose Instruction: As directed Patient Comments: Pressure: 10-16 cmH2O DME:[facility] Rx Instructions: As directed Referrals: Ladan Dillard MD [Primary Care Provider] - Stand Alone Forms: Patient Portal/API
[2022-11-25] MEDS: HYDROMORPHONE 1 MG INJ IM (08:42)
== END 2022-11-25 08:46 | disposition home or self-care (01) ==
PROVIDERS: Emergency Provider Emergency Medicine; PCP Family Medicine
DX: M10.9 Gout, unspecified (principal)
CPT/HCPCS: 96372; 99283; J1170

== ENCOUNTER → 2022-11-27 10:43 | Outpatient (CLI) | payer OTHER, SELFPAY ==
[2022-11-27 13:10] LABS: Alanine Aminotransferase 51 IU/L (<50); Albumin 4.8 g/dL (3.5-5.0); Albumin Globulin Ratio 1.3 (1.0-2.8); Alkaline Phosphatase 76 U/L (38-126); Aspartate Aminotransferase 46 IU/L (17-59); Bilirubin Total 0.6 mg/dL (0.2-1.3); Blood Urea Nitrogen 15 mg/dL (9-20); Calcium 9.5 mg/dL (8.4-10.2); Carbon Dioxide 30 mmol/L (22-32); Chloride 103 mmol/L (98-107); Cholesterol 180 mg/dL (140-199); Estimated Glomerular Filt Rate > 60 mL/min (>60); Globulin 3.8 g/dL (1.7-4.1); Glucose 123 mg/dL (80-110); HDL Cholesterol 45 mg/dL (40-60); HEMOLYSIS < 15 (0-50); LDL Cholesterol Calculated 98 mg/dL (<100); Potassium 4.3 mmol/L (3.4-5.1); Sodium 141 mmol/L (137-145); Total Protein 8.6 g/dL (6.3-8.2); Triglycerides 183 mg/dL (35-150); Uric Acid 6.3 mg/dL (3.5-8.5)
[2022-11-28 06:56] LABS: Labcorp Hemoglobin (Hb) A1c 6.3 % (4.8-5.6)
== END ==
PROVIDERS: PCP Family Medicine; Referring Provider Family Medicine; Visit Provider Family Medicine
DX: M10.9 Gout, unspecified (principal); E78.5 Hyperlipidemia, unspecified
CPT/HCPCS: 36415; 80053; 80061; 83036; 84550

== ENCOUNTER → 2023-10-01 16:23 | Outpatient (CLI) | payer OTHER, SELFPAY ==
--- NOTE | 2023-10-01 16:26 | DI.RAD.S_ITS ---
PROCEDURE: XR KNEE LT 3V INDICATIONS: L knee pain TECHNIQUE: 3 views of the knee were acquired. COMPARISON: [facility], CR, XR KNEE RT 3V, 11/17/2019, 11:15. FINDINGS: Bones: No fractures or dislocations. No patellar subluxation. Mild tricompartmental osteoarthritis is seen. No suspicious bony lesions. Soft tissues: No joint effusion. No suspicious soft tissue calcifications. IMPRESSION: No acute left knee fracture or dislocation. Mild tricompartmental osteoarthritis. Small joint effusion. Dictated by: Rufino Farrar M.D. on 10/01/2023 at 16:47 Approved by: Rufino Farrar M.D. on 10/01/2023 at 16:50
== END ==
LOC: RAD 16:24
PROVIDERS: PCP Family Medicine; Referring Provider Physician Assistant Medical; Visit Provider Physician Assistant Medical
DX: M17.12 Unilateral primary osteoarthritis, left knee (principal); M25.462 Effusion, left knee; M25.562 Pain in left knee
CPT/HCPCS: 73562

== ENCOUNTER → 2023-10-10 16:13 | Outpatient (CLI) | payer OTHER, SELFPAY ==
--- NOTE | 2023-10-10 16:14 | DI.MRI.S_ITS ---
PROCEDURE: MR KNEE LT WO CON INDICATIONS: left knee pain after fall, instability TECHNIQUE: Noncontrast sagittal PD fast spin echo and T2 fast spin echo with fat saturation, sagittal 3-D FLASH with fat saturation; coronal T1 spin echo and PD fast spin echo with fat saturation, and axial PD fast spin echo with fat saturation through the knee. COMPARISON: None. FINDINGS: Image quality: Excellent. Menisci: Oblique tear involving posterior horn of medial meniscus is seen extending to inferior articulating surface. Oblique tear involving anterior horn of lateral meniscus is also seen extending to superior articulating surface. Cruciate ligaments: There is suggestion of high-grade partial to full-thickness ACL rupture near its femoral insertion. The posterior cruciate ligament is intact. Medial structures: The medial collateral ligament appears thickened with surrounding edema near its femoral insertion. Visualized portions of the pes anserinus tendons appear normal. No abnormal bursal fluid. Lateral structures: The lateral collateral ligament, long and short heads of the biceps femoris tendon appear thickened with intrasubstance T2 hyperintense signal. The popliteus tendon appears normal. Iliotibial band appears normal. Anterior structures: The quadriceps and patellar tendons appear intact. Patellar alignment is normal. No femoral trochlear dysplasia or ventral trochlear prominence. No edema in the infrapatellar fat pad. Bones and cartilage: There is marrow edema involving weight-bearing portion of lateral femoral condyle and posterior and lateral aspect of proximal tibia extending to posterior aspect of lateral tibial plateau without definite fracture line. Articulating cartilage in medial and lateral femoral tibial compartments and patellofemoral compartment is normal in thickness. Joint space: There is moderate knee joint fluid. There is a lobulated popliteal cyst measures up to 2.7 x 1.6 x 7 cm in size. Normal appearing synovial plicae are incidentally noted. IMPRESSION: 1. High-grade partial to full-thickness rupture of ACL near its proximal insertion. The PCL is intact. 2. Oblique tear involving posterior horn of medial meniscus extending to inferior articulating surface. Oblique tear involving anterior horn of lateral meniscus extending to superior articulating surface. 3. Low-grade MCL sprain. Moderate grade LCL sprain/partial-thickness tear. Distal biceps femorals tendinosis and low-grade intrasubstance partial-thickness tear. 4. Bony contusion involving lateral femoral condyle weight-bearing portion and posterior lateral aspect of proximal tibia extending to lateral tibial plateau. No fracture or dislocation. Moderate joint effusion and a popliteal cyst as above. No loose bodies. Dictated by: Rufino Farrar M.D. on 10/10/2023 at 17:25 Approved by: Rufino Farrar M.D. on 10/10/2023 at 17:29
== END ==
PROVIDERS: PCP Family Medicine; Referring Provider Family Medicine; Visit Provider Family Medicine
DX: S83.512A Sprain of anterior cruciate ligament of left knee, initial encounter (principal); S83.242A Other tear of medial meniscus, current injury, left knee, initial encounter; S83.282A Other tear of lateral meniscus, current injury, left knee, initial encounter; S83.412A Sprain of medial collateral ligament of left knee, initial encounter; S83.422A Sprain of lateral collateral ligament of left knee, initial encounter; S80.02XA Contusion of left knee, initial encounter; M25.462 Effusion, left knee; M71.22 Synovial cyst of popliteal space [Baker], left knee; M25.562 Pain in left knee; M25.362 Other instability, left knee
CPT/HCPCS: 73721

== ENCOUNTER → 2024-01-09 07:48 | Outpatient (CLI) | payer OTHER, SELFPAY ==
[2024-01-09 08:21] LABS: Hemoglobin A1C% w Est Avg Glu 5.9 % (4.0-6.0)
[2024-01-09 08:37] LABS: Alanine Aminotransferase 34 IU/L (<50); Albumin 4.4 g/dL (3.5-5.0); Albumin Globulin Ratio 1.5 (1.0-2.8); Alkaline Phosphatase 75 U/L (38-126); Aspartate Aminotransferase 30 IU/L (17-59); BUN Creatinine Ratio 19.4 (6-22); Bilirubin Total 0.7 mg/dL (0.2-1.3); Blood Urea Nitrogen 21 mg/dL (9-20); Calcium 9.6 mg/dL (8.4-10.2); Carbon Dioxide 22 mmol/L (22-32); Chloride 105 mmol/L (98-107); Cholesterol 160 mg/dL (140-199); Estimated Glomerular Filt Rate > 60 mL/min (>60); Glucose 125 mg/dL (80-110); HDL Cholesterol 39 mg/dL (40-60); HEMOLYSIS < 15 (0-50); LDL Cholesterol Calculated 84 mg/dL (<100); Potassium 4.4 mmol/L (3.4-5.1); Sodium 136 mmol/L (137-145); Total Protein 7.4 g/dL (6.3-8.2); Triglycerides 185 mg/dL (35-150)
[2024-01-09 09:30] LABS: Creatinine Urine Random 194.36 mg/dL
[2024-01-09 09:35] LABS: Microalbumin Urine Random 1.2 mg/dL (0-1.6)
== END ==
LOC: LAB 07:49
PROVIDERS: PCP Family Medicine; Referring Provider Family Medicine; Visit Provider Family Medicine
DX: I10 Essential (primary) hypertension (principal); R73.03 Prediabetes
CPT/HCPCS: 36415; 80053; 80061; 82043; 82570; 83036